=== PATIENT | male | born 1995 | race African-American/Black ===

== ENCOUNTER 2016-08-02 13:53 | Emergency (ER) | payer SELFPAY ==
[~2016-08-02] VITALS: Ht 180.3 cm; Wt 68.0 kg
--- NOTE | 2016-08-02 14:40 | Emergency Room Report ---
History of Present Illness General Chief Complaint: General Complaint Source: Patient Present Illness HPI 21-year-old male presents emergency department complaining of burning with urination in addition to penile discharge x3 days status post unprotected sexual intercourse. Patient denies fevers, chills or joint pain. denies eye symptoms. Patient states he wants to be treated for venereal disease. Patient denies abdominal pain, nausea, vomiting, penile lesions. My negatives Allergies: Coded Allergies: No Known Allergies (Unverified , 08/02/16) Patient History Past Medical History: see triage record Past Surgical History: none Pertinent Family History: none Reviewed Nursing Documentation: PMH: Agreed, PSxH: Agreed Nursing Documentation-PMH Past Medical History: No Stated History Review of Systems All Other Systems: negative except mentioned in HPI Physical Exam Vital Signs Date Time Temp Pulse Resp B/P Pulse Ox O2 Delivery O2 Flow Rate FiO2 08/02/16 14:33 97.7 74 16 118/59 97 Room Air Sp02 EP Interpretation: reviewed, normal General Appearance: no apparent distress, alert, GCS 15, non-toxic Head: normocephalic, atraumatic Eyes: bilateral eye PERRL, bilateral eye normal inspection ENT: hearing grossly normal, normal pharynx, no angioedema, normal voice Neck: full range of motion, supple/symm/no masses Respiratory: chest non-tender, lungs clear, normal breath sounds, speaking full sentences Cardiovascular #1: regular rate, rhythm, no edema Cardiovascular #2: 2+ carotid (R), 2+ carotid (L), 2+ radial (R), 2+ radial (L) , 2+ dorsalis pedis (R), 2+ dorsalis pedis (L) Gastrointestinal: normal bowel sounds, non tender, soft, no guarding, no rebound Rectal: deferred Genitourinary: normal inspection, no CVA tenderness, penis normal, scrotum normal, other - clear d/c noted, no lesions, no erythema, left inguinal palpable node - pt reports has been there for years. Musculoskeletal: back normal, gait/station normal, normal range of motion, non- tender Neurologic: alert, oriented x3, responsive, motor strength/tone normal, sensory intact, speech normal Psychiatric: judgement/insight normal, memory normal, mood/affect normal Skin: normal color, no rash, warm/dry, well hydrated Lymphatic: adenopathy - left inguinal palpable node, non-tender - pt reports has been there for years. Medical Decision Making PA Attestation Dr. Bennett is my supervising Physician whom patient management has been discussed with. Diagnostic Impression: Primary Impression: Urethritis ER Course Pt. presents to the ED c/o Dysuria and penile d/c x 3 days. with recent unprotected intercourse with new partner. Ddx considered but are not limited to UTi , STI, G & C, trichomonas, urethritis Vital signs: are WNL, pt. is afebrile H&PE are most consistent with urethritis will treat prophylactically and send labs. ORDERS: - UA: rbc's present otherwise unremarkable -G & C Urine: Pending ED INTERVENTIONS: -250mg Rocephin IM DISCHARGE: At this time pt. is stable for d/c to home. Will provide printed patient care instructions, and any necessary prescriptions. Care plan and follow up instructions have been discussed with the patient prior to discharge. Labs Test 08/02/16 14:46 Urine Color Yellow Urine Appearance Slightly cloudy Urine pH 7 (4.5-8.0) Urine Specific [place] 1.005 (1.005-1.035) Urine Protein 1+ (NEGATIVE) Urine Glucose (UA) Negative (NEGATIVE) Urine Ketones Negative (NEGATIVE) Urine Occult Blood Negative (NEGATIVE) Urine Nitrite Negative (NEGATIVE) Urine Bilirubin Negative (NEGATIVE) Urine Urobilinogen 1 MG/DL (0.0-1.0) Urine Leukocyte Esterase 1+ (NEGATIVE) Urine RBC 5-10 /HPF (0 - 0) Urine WBC 2-4 /HPF (0 - 0) Urine Squamous Epithelial Cells Few /LPF (NONE/OCC) Urine Bacteria Few /HPF (NONE) Last Vital Signs Date Time Temp Pulse Resp B/P Pulse Ox O2 Delivery O2 Flow Rate FiO2 08/02/16 14:33 97.7 74 16 118/59 97 Room Air Disposition: HOME, SELF-CARE Condition: Stable Scripts Phenazopyridine Hcl* (PYRIDIUM*) 100 Mg Tablet 100 MG ORAL THREE TIMES A DAY for 3 Days, #9 TAB Prov: Radha Elizondo P.A. 08/02/16 Doxycycline Hyclate* (VIBRAMYCIN*) 100 Mg Capsule 100 MG ORAL EVERY 12 HOURS for 7 Days, #14 CAP 0 Refills Prov: Radha Elizondo P.A. 08/02/16 Patient Instructions: Chlamydia Test, Gonorrhea Testing Additional Instructions: Take medications as directed. Follow up with PCP in 3-5 days Return sooner to ED if new symptoms occur, or current symptoms become worse. - Please note that this Emergency Department Report was dictated using [employer] mender technology software, occasionally this can lead to erroneous entry secondary to interpretation by the dictation equipment. Radha Elizondo Aug 02, 2016 14:40
[2016-08-02] MEDS ORDERED: PHENAZOPYRIDIN100 MG ORAL (14:55)
[2016-08-02] MEDS ORDERED: VIBRAMYCIN100 MG ORAL (14:55)
[2016-08-02] MEDS ORDERED: Lidocaine 1% MPF 10mg/ml 5ml ONE (14:57)
[2016-08-02 15:10] VITALS: BP 111/63
[2016-08-02 15:10] LABS: KETONES,URINE NEGATIVE (NEGATIVE); LEUKOCYTE ESTERASE ,URINE 1+ (NEGATIVE); NITRITE,URINE NEGATIVE (NEGATIVE); PH,URINE 7 (4.5-8.0); PROTEIN,URINE 1+ (NEGATIVE); UROBILINOGEN,URINE 1 MG/DL (0.0-1.0)
[2016-08-02 15:11] VITALS: BP 111/63
[2016-08-02 15:18] LABS: APPEARANCE,URINE SLIGHTLY CLOUDY
[2016-08-02 15:19] LABS: BACTERIA,URINE FEW /HPF; SQUAMOUS EPITHELIAL CELL,UR FEW /LPF (NONE/OCC)
== END 2016-08-02 15:11 | disposition home or self-care (01) ==
LOC: EMR 15:00
DX: N34.2 Other urethritis (principal); R59.0 Localized enlarged lymph nodes
CPT/HCPCS: 81003; 87491; 87590; 96372; 99284; J0696